=== PATIENT | male | born 1955 | race Caucasian/White ===

== ENCOUNTER 2017-06-05 08:26 | Day surgery (SDC) | payer BC, OTHER ==
[~2017-06-05] VITALS: Ht 182.9 cm; Wt 104.4 kg
[~2017-06-05 08:26] MED LIST: BUPIVACAINE/PF 0.5% ONE; EPINEPHRINE 1 MG/ML, 1ML ONE
[2017-06-05] MEDS ORDERED: LACTATED RINGERS 1,000 ML IV SCH (08:58)
[2017-06-05] MEDS ORDERED: LIDOCAINE 1%, 2ML SQ PRN (09:00)
[2017-06-05 09:01] VITALS: BP 132/80
[2017-06-05] MEDS ORDERED: LIDOCAINE 1%, 2ML ONE (09:04)
[2017-06-05] MEDS ORDERED: MIDAZOLAM 1 MG/ML, 2ML ONE (09:48)
[2017-06-05] MEDS ORDERED: FENTANYL PF 100 MCG/2ML ONE (09:48)
[2017-06-05] MEDS ORDERED: PROPOFOL 10 MG/ML, 20ML ONE (09:49)
[2017-06-05] MEDS ORDERED: LIDOCAINE-MPF 2% ,5ML ONE (09:49)
[2017-06-05] MEDS ORDERED: CEFAZOLIN 1,000 MG ONE ×2 (09:50)
[2017-06-05] MEDS ORDERED: NEOSPORIN OINT, 15GM ONE (10:05)
[2017-06-05] MEDS ORDERED: BUPIVACAINE/PF 0.5% ONE (10:05)
[2017-06-05] MEDS ORDERED: EPINEPHRINE 1 MG/ML, 1ML ONE (10:06)
[2017-06-05] MEDS ORDERED: DEXAMETHASONE 4 MG/ML, 1ML ONE ×2 (10:36)
[2017-06-05] MEDS ORDERED: KETAMINE 10 MG/ML, 20ML ONE (10:47)
[2017-06-05] MEDS ORDERED: ONDANSETRON 2MG/ML, 2ML ONE ×2 (10:50)
[2017-06-05] MEDS ORDERED: FENTANYL PF 100 MCG/2ML IV PRN (11:00)
[2017-06-05] MEDS ORDERED: PROMETHAZINE 25 MG/ML, 1ML IV PRN (11:00)
[2017-06-05] MEDS ORDERED: hydrALAzine 20 MG/ML, 1ML IV PRN (11:00)
[2017-06-05] MEDS ORDERED: OXYcodone 5 MG/5 ML ORAL.SOL UDC PO PRN (11:00)
[2017-06-05] MEDS ORDERED: HYDROmorphone 1 MG/ML, 1ML IV PRN (11:00)
[2017-06-05] MEDS ORDERED: ACETAMINOPHEN 325 MG TABLET PO PRN (11:00)
[2017-06-05] MEDS ORDERED: MEPERIDINE/PF 25MG/0.5ML IVPush PRN (11:00)
[2017-06-05] MEDS ORDERED: ONDANSETRON 2MG/ML, 2ML IVPush PRN (11:00)
[2017-06-05] MEDS ORDERED: LABETALOL 5MG/ML, 20ML IV PRN (11:00)
== END 2017-06-05 12:50 ==
LOC: OUT 08:26
PROVIDERS: ATTEND Orthopaedic Surgery
DX: T84.84XA Pain due to internal orthopedic prosthetic devices, implants and grafts, initial encounter (principal); Y83.8 Other surgical procedures as the cause of abnormal reaction of the patient, or of later complication, without mention of misadventure at the time of the procedure; Y92.89 Other specified places as the place of occurrence of the external cause
CPT/HCPCS: 20680; 73600; 76000; 93005; J0171; J0690; J1100; J2250; J2405; J2704; J3010; J3490; J7120